=== PATIENT | female | born 1975 | race Hispanic/Latino ===

== ENCOUNTER 2017-03-27 18:09 | Emergency (ER) | payer SELFPAY ==
[~2017-03-27] VITALS: Ht 170.2 cm; Wt 118.6 kg
[2017-03-27 19:53] LABS: HEMATOCRIT 39.7 % (37.0-47.0); HEMOGLOBIN 12.8 g/dl (12.0-16.0); IMMATURE GRANULOCYTES 0.3 % (0.0-1.0); MEAN CELL VOLUME 85.6 fL CALC (80.0-100.0); MEAN CORPUSCULAR HGB 27.6 pG CALC (26.0-32.0); MEAN CORPUSCULAR HGB CONC 32.2 g/L CALC (32.0-36.0); NEUT# 3.57 thou/uL (2.00-7.15); RED BLOOD COUNT 4.64 mill/uL (4.20-5.60); RED CELL DISTRI WIDTH 13.6 % (11.5-15.5)
[2017-03-27 20:02] LABS: ALBUMIN 4.1 g/dL (3.2-5.0); ALKALINE PHOSPHATASE 47 u/l (38-126); ANION GAP 15 (6-22 (CALC)); BILIRUBIN, TOTAL 0.2 mg/dL (0.0-1.4); BUN 10 mg/dL (7-17); BUN/CREATININE RATIO 11 (12-20 (CALC)); CALCIUM 9.7 mg/dL (8.4-10.2); CARBON DIOXIDE 26 mmol/l (22-30); CHLORIDE 106 mmol/l (95-108); CREATININE 0.9 mg/dL (0.5-1.0); GFR > 60 ML/MIN (>=60 (CALC)); GFR FOR AFR.AMER. > 60 ML/MIN (>=60 (CALC)); GLUCOSE 84 mg/dL (65-105); POTASSIUM 4.4 mmol/l (3.5-5.1); SGOT/AST 26 u/l (14-36); SGPT/ALT 32 u/l (9-52); SODIUM 142 mmol/l (137-146); TOTAL PROTEIN 7.2 g/dL (6.3-8.2)
[2017-03-27 21:41] VITALS: BP 146/82
== END 2017-03-27 21:41 | disposition home or self-care (01) | DRG 778 ==
LOC: ED 18:09
PROVIDERS: Emergency Medicine
DX: O20.0 Threatened abortion (principal); R10.9 Unspecified abdominal pain; Z3A.01 Less than 8 weeks gestation of pregnancy

== ENCOUNTER 2017-06-29 20:52 | Emergency (ER) | payer SELFPAY ==
[~2017-06-29] VITALS: Ht 170.2 cm; Wt 117.2 kg
[2017-06-29 23:07] LABS: HEMATOCRIT 43.6 % (37.0-47.0); HEMOGLOBIN 13.9 g/dl (12.0-16.0); IMMATURE GRANULOCYTES 0.5 % (0.0-1.0); MEAN CELL VOLUME 84.3 fL CALC (80.0-100.0); MEAN CORPUSCULAR HGB 26.9 pG CALC (26.0-32.0); MEAN CORPUSCULAR HGB CONC 31.9 g/L CALC (32.0-36.0); NEUT# 4.49 thou/uL (2.00-7.15); RED BLOOD COUNT 5.17 mill/uL (4.20-5.60); RED CELL DISTRI WIDTH 14.1 % (11.5-15.5)
[2017-06-29 23:08] LABS: URINE BILIRUBIN - DIPSTICK NEGATIVE (NEGATIVE); URINE BLOOD DIPSTICK NEGATIVE (NEGATIVE); URINE COLOR YELLOW; URINE GLUCOSE - DIPSTICK NEGATIVE (NEGATIVE); URINE KETONE NEGATIVE (NEGATIVE); URINE LEUK ESTERASE NEGATIVE (NEGATIVE); URINE NITRITE - DIPSTICK NEGATIVE (Negative); URINE PROTEIN - DIPSTICK NEGATIVE (NEG-TRACE); URINE SPECIFIC GRAVITY >=1.030; URINE UROBILINOGEN - DIPSTICK 0.2 E.U./dL (0.2)
[2017-06-29 23:10] LABS: URINE CLARITY CLEAR
[2017-06-29 23:19] LABS: ALBUMIN 4.2 g/dL (3.2-5.0); ALKALINE PHOSPHATASE 49 u/l (38-126); AMYLASE 88 u/l (30-110); ANION GAP 18 (6-22 (CALC)); BILIRUBIN, TOTAL 0.3 mg/dL (0.0-1.4); BUN 14 mg/dL (7-17); BUN/CREATININE RATIO 18 (12-20 (CALC)); CARBON DIOXIDE 23 mmol/l (22-30); CHLORIDE 103 mmol/l (95-108); CREATININE 0.8 mg/dL (0.5-1.0); GFR > 60 ML/MIN (>=60 (CALC)); GFR FOR AFR.AMER. > 60 ML/MIN (>=60 (CALC)); LIPASE 49 u/l (23-300); SGOT/AST 26 u/l (14-36); SGPT/ALT 37 u/l (9-52); SODIUM 140 mmol/l (137-146); TOTAL PROTEIN 8.1 g/dL (6.3-8.2)
[2017-06-30 02:52] VITALS: BP 131/70
== END 2017-06-30 02:59 | disposition home or self-care (01) | DRG 951 ==
LOC: ED 20:52
PROVIDERS: Emergency Medicine
DX: Z33.1 Pregnant state, incidental (principal); R10.2 Pelvic and perineal pain; Z3A.01 Less than 8 weeks gestation of pregnancy; R11.0 Nausea

== ENCOUNTER 2017-07-27 19:12 | Emergency (ER) | payer OTHER ==
[~2017-07-27] VITALS: Ht 170.2 cm; Wt 100.0 kg
[2017-07-27 20:31] LABS: HEMATOCRIT 41.6 % (37.0-47.0); HEMOGLOBIN 13.5 g/dl (12.0-16.0); IMMATURE GRANULOCYTES 0.4 % (0.0-1.0); MEAN CELL VOLUME 84.4 fL CALC (80.0-100.0); MEAN CORPUSCULAR HGB 27.4 pG CALC (26.0-32.0); MEAN CORPUSCULAR HGB CONC 32.5 g/L CALC (32.0-36.0); NEUT# 4.38 thou/uL (2.00-7.15); RED BLOOD COUNT 4.93 mill/uL (4.20-5.60); RED CELL DISTRI WIDTH 14.1 % (11.5-15.5)
[2017-07-27 20:44] LABS: ALBUMIN 4.2 g/dL (3.2-5.0); ALKALINE PHOSPHATASE 48 u/l (38-126); ANION GAP 18 (6-22 (CALC)); BILIRUBIN, TOTAL 0.2 mg/dL (0.0-1.4); BUN 15 mg/dL (7-17); BUN/CREATININE RATIO 18 (12-20 (CALC)); CARBON DIOXIDE 22 mmol/l (22-30); CHLORIDE 104 mmol/l (95-108); CREATININE 0.8 mg/dL (0.5-1.0); GFR > 60 ML/MIN (>=60 (CALC)); GFR FOR AFR.AMER. > 60 ML/MIN (>=60 (CALC)); POTASSIUM 4.1 mmol/l (3.5-5.1); SGOT/AST 22 u/l (14-36); SGPT/ALT 35 u/l (9-52); SODIUM 140 mmol/l (137-146); TOTAL PROTEIN 7.8 g/dL (6.3-8.2)
[2017-07-27 21:10] LABS: URINE BILIRUBIN - DIPSTICK NEGATIVE (NEGATIVE); URINE BLOOD DIPSTICK NEGATIVE (NEGATIVE); URINE COLOR YELLOW; URINE GLUCOSE - DIPSTICK NEGATIVE (NEGATIVE); URINE KETONE NEGATIVE (NEGATIVE); URINE LEUK ESTERASE NEGATIVE (NEGATIVE); URINE NITRITE - DIPSTICK NEGATIVE (Negative); URINE PROTEIN - DIPSTICK NEGATIVE (NEG-TRACE); URINE SPECIFIC GRAVITY >=1.030; URINE UROBILINOGEN - DIPSTICK 0.2 E.U./dL (0.2)
[2017-07-27 21:11] LABS: URINE CLARITY CLEAR
[2017-07-27 21:27] LABS: BETA-HCG, QUANT(RESULT NUMBER) 25189 mIU/mL
[2017-07-27 22:01] VITALS: BP 120/77
== END 2017-07-27 22:01 | disposition home or self-care (01) | DRG 781 ==
LOC: ED 19:12
PROVIDERS: Emergency Medicine
DX: O26.891 Other specified pregnancy related conditions, first trimester (principal); R10.30 Lower abdominal pain, unspecified; Z3A.00 Weeks of gestation of pregnancy not specified

== ENCOUNTER 2019-09-28 07:30 | Observation (INO) | payer BC ==
[~2019-09-28] VITALS: Ht 170.2 cm; Wt 124.2 kg
--- NOTE | 2019-09-28 07:40 | NUR ---
PATIENT TO ROOM VIA WHEELCHAIR FOR BEDSIDE TRIAGE.
[2019-09-28 08:15] LABS: URINE BILIRUBIN - DIPSTICK NEGATIVE (NEGATIVE); URINE BLOOD DIPSTICK NEGATIVE (NEGATIVE); URINE COLOR YELLOW; URINE GLUCOSE - DIPSTICK NEGATIVE (NEGATIVE); URINE KETONE NEGATIVE (NEGATIVE); URINE LEUK ESTERASE TRACE (NEGATIVE); URINE NITRITE - DIPSTICK NEGATIVE (Negative); URINE PROTEIN - DIPSTICK NEGATIVE (NEG-TRACE); URINE SPECIFIC GRAVITY >=1.030; URINE UROBILINOGEN - DIPSTICK 0.2 E.U./dL (0.2)
[2019-09-28 08:26] LABS: HEMATOCRIT 39.4 % (37.0-47.0); IMMATURE GRANULOCYTES 0.3 % (0.0-5.0); MEAN CELL VOLUME 85.8 fL CALC (80.0-100.0); MEAN CORPUSCULAR HGB 26.1 pG CALC (26.0-32.0); MEAN CORPUSCULAR HGB CONC 30.5 g/dL CAL (32.0-36.0); NEUT# 4.15 thou/uL (2.00-7.15); RED BLOOD COUNT 4.59 mill/uL (4.20-5.60); RED CELL DISTRI WIDTH 13.6 % (11.5-15.5)
--- NOTE | 2019-09-28 08:32 | NUR ---
LAB AT BEDSIDE TO COLLECT BLOOD SPECIMAN.
[2019-09-28 08:43] LABS: ALBUMIN 3.8 g/dL (3.2-5.0); ALKALINE PHOSPHATASE 50 u/l (38-126); ANION GAP 10 (6-22 (CALC)); BILIRUBIN, TOTAL 0.4 mg/dL (0.0-1.4); BUN 15 mg/dL (7-17); BUN/CREATININE RATIO 19 (12-20 (CALC)); CARBON DIOXIDE 25 mmol/l (22-30); CHLORIDE 103 mmol/l (95-108); CREATININE 0.8 mg/dL (0.5-1.0); GFR > 60 ML/MIN (>=60 (CALC)); GFR FOR AFR.AMER. > 60 ML/MIN (>=60 (CALC)); LIPASE 29 u/l (23-300); POTASSIUM 4.8 mmol/l (3.5-5.1); SGOT/AST 24 u/l (14-36); SODIUM 133 mmol/l (137-146)
--- NOTE | 2019-09-28 09:10 | NUR ---
RETURNED FROM RADIOLOGY. REPORTS PAIN IMPROVED 4/10 ABD PAIN.
--- NOTE | 2019-09-28 10:23 | NUR ---
RESTING ON STRETCHER, AT BEDSIDE. REPORTS ABD PAIN 05/16. MD NOTIFIED.
--- NOTE | 2019-09-28 11:00 | NUR ---
MD AT BEDSIDE TO DISCUSS RESULTS AND PLAN TO SEND TO THE OR.
--- NOTE | 2019-09-28 12:23 | NUR ---
OR NURSE AT BEDSIDE.
--- NOTE | 2019-09-28 12:39 | NUR ---
TO OR VIA STRETCHER ACCOMPANIED BY FLORES SCHERER.
[2019-09-28] MEDS ORDERED: PERCOCET 5/325M1 TAB PO (14:04)
[2019-09-28 15:01] VITALS: BP 166/95
== END 2019-09-28 15:10 | disposition home or self-care (01) | DRG 353 ==
LOC: ED 07:30 → ED-I 10:20 → ED 10:33 → ED-I 10:34
PROVIDERS: Student in an Organized Health Care Education/Training Program; ADMIT Surgery; ATTEND Surgery
PROC: 0WQF0ZZ Repair Abdominal Wall, Open Approach (ICD-10-PCS; principal; 2019-09-28)
DX: K43.6 Other and unspecified ventral hernia with obstruction, without gangrene (principal); U07.1 COVID-19
CPT/HCPCS: J0131; J1100; Q9967

== ENCOUNTER 2020-05-11 22:14 | Emergency (ER) | payer OTHER, BC ==
[~2020-05-11] VITALS: Ht 170.2 cm; Wt 118.0 kg
[~2020-05-11 22:14] MED LIST: PERCOCET 5/325M1 TAB PO
[2020-05-11 23:11] LABS: URINE BILIRUBIN - DIPSTICK NEGATIVE (NEGATIVE); URINE BLOOD DIPSTICK NEGATIVE (NEGATIVE); URINE COLOR YELLOW; URINE GLUCOSE - DIPSTICK NEGATIVE (NEGATIVE); URINE KETONE NEGATIVE (NEGATIVE); URINE LEUK ESTERASE NEGATIVE (NEGATIVE); URINE NITRITE - DIPSTICK NEGATIVE (Negative); URINE PROTEIN - DIPSTICK NEGATIVE (NEG-TRACE); URINE SPECIFIC GRAVITY >=1.030; URINE UROBILINOGEN - DIPSTICK 0.2 E.U./dL (0.2)
[2020-05-12] MEDS ORDERED: IBUPROFEN600 MG PO (00:15)
[2020-05-12] MEDS ORDERED: ORPHENADRINE100 MG PO (00:15)
[2020-05-12 01:30] VITALS: BP 136/72
== END 2020-05-12 01:40 | disposition home or self-care (01) | DRG 552 ==
LOC: ED 22:14
PROVIDERS: Emergency Medicine
DX: M54.5 Low back pain (principal); E66.9 Obesity, unspecified; W01.0XXA Fall on same level from slipping, tripping and stumbling without subsequent striking against object, initial encounter; Y92.89 Other specified places as the place of occurrence of the external cause; Y99.0 Civilian activity done for income or pay

== ENCOUNTER 2021-05-30 09:31 | Emergency (ER) | payer OTHER ==
[~2021-05-30] VITALS: Ht 165.1 cm; Wt 127.0 kg
[~2021-05-30 09:31] MED LIST changes: +IBUPROFEN600 MG PO; +ORPHENADRINE100 MG PO
[2021-05-30 09:54] VITALS: BP 145/89
[2021-05-30 10:30] VITALS: BP 142/83
[2021-05-30 10:51] LABS: URINE BILIRUBIN - DIPSTICK NEGATIVE (NEGATIVE); URINE BLOOD DIPSTICK NEGATIVE (NEGATIVE); URINE COLOR YELLOW; URINE GLUCOSE - DIPSTICK NEGATIVE (NEGATIVE); URINE KETONE NEGATIVE (NEGATIVE); URINE LEUK ESTERASE NEGATIVE (NEGATIVE); URINE PROTEIN - DIPSTICK NEGATIVE (NEG-TRACE); URINE SPECIFIC GRAVITY 1.025; URINE UROBILINOGEN - DIPSTICK 0.2 E.U./dL (0.2)
[2021-05-30 10:52] LABS: HEMATOCRIT 44.3 % (37.0-47.0); IMMATURE GRANULOCYTES 0.1 % (0.0-5.0); MEAN CORPUSCULAR HGB 26.9 pG CALC (26.0-32.0); MEAN CORPUSCULAR HGB CONC 31.6 g/dL CAL (32.0-36.0); NEUT# 7.33 thou/uL (2.00-7.15); RED BLOOD COUNT 5.21 mill/uL (4.20-5.60); RED CELL DISTRI WIDTH 13.9 % (11.5-15.5)
[2021-05-30 10:55] LABS: URINE NITRITE - DIPSTICK NEGATIVE (Negative)
[2021-05-30 11:08] LABS: ALBUMIN 4.3 g/dL (3.2-5.0); ALKALINE PHOSPHATASE 67 u/l (38-126); ANION GAP 12 (6-22 (CALC)); BILIRUBIN, TOTAL 0.5 mg/dL (0.0-1.4); BUN 14 mg/dL (7-17); BUN/CREATININE RATIO 15 (12-20 (CALC)); CARBON DIOXIDE 27 mmol/l (22-30); CHLORIDE 102 mmol/l (95-108); CREATININE 0.9 mg/dL (0.5-1.0); GFR > 60 ML/MIN (>=60 (CALC)); GFR FOR AFR.AMER. > 60 ML/MIN (>=60 (CALC)); SGOT/AST 26 u/l (14-36); SODIUM 137 mmol/l (137-146); TOTAL PROTEIN 8.3 g/dL (6.3-8.2)
[2021-05-30] MEDS ORDERED: AMOXICILLIN/PO500 MG PO ×2 (14:04→18:46)
[2021-05-30] MEDS ORDERED: ULTRAM50 M1 PO (14:04)
[2021-05-30 14:09] VITALS: BP 142/83
[2021-05-30] MEDS ORDERED: NAPROXEN500 MG PO (18:44)
== END 2021-05-30 14:40 | disposition home or self-care (01) | DRG 156 ==
LOC: ED 09:31
PROVIDERS: Emergency Medicine
DX: K11.20 Sialoadenitis, unspecified (principal)
CPT/HCPCS: Q9967